=== PATIENT | female | born 1960 | race Caucasian/White ===

== ENCOUNTER 2019-10-03 06:17 | Day surgery (SDC) | payer MEDICAID ==
[~2019-10-03] VITALS: Ht 170.2 cm; Wt 69.2 kg
[2019-10-03] MEDS ORDERED: albumin 25% 100mL bottle x 1 IV PRN (06:45)
[2019-10-03 06:56] VITALS: BP 125/83
[2019-10-03] MEDS ORDERED: FURO-150 PO (07:07)
[2019-10-03] MEDS ORDERED: ACET-2119 PO (07:07)
[2019-10-03] MEDS ORDERED: SENN-162 PO (07:07)
[2019-10-03] MEDS ORDERED: SIME42TA (07:07)
[2019-10-03] MEDS ORDERED: LIDO30CR23 TOP (07:07)
[2019-10-03] MEDS ORDERED: OMEP40CA13 PO (07:07)
[2019-10-03 08:59] VITALS: BP 117/72
[2019-10-03] MEDS ORDERED: acetaminophen 325mg tablet PO PRN (09:25)
[2019-10-03 09:54] LABS: BF RBC COUNT 17250 /CU MM; BF WBC COUNT 500 /CU MM (0-1000); BFAPPEAR BLOODY; BFCOLOR RED; BFVOLUME 58 ML; LYMPHOCYTES,BODY FLUID 71 %; MONOCYTES,BODY FLUID 24 %; NEUTROPHILS,BODY FLUID 5 %
[2019-10-03 09:57] LABS: GLUCOSE,BODY FLUID 49 MG/DL; LDH,BODY FLUID 236 U/L; TOTAL PROTEIN,BODY FLUID 4.6 G/DL
[2019-10-03 09:59] VITALS: BP 126/78
== END 2019-10-03 10:01 | disposition home or self-care (01) ==
LOC: SSTAY O 06:17
PROVIDERS: ATTEND Radiology Diagnostic Radiology
DX: R18.8 Other ascites (principal); G89.29 Other chronic pain; E03.9 Hypothyroidism, unspecified; F32.9 Major depressive disorder, single episode, unspecified; I11.0 Hypertensive heart disease with heart failure; I50.9 Heart failure, unspecified; Z85.43 Personal history of malignant neoplasm of ovary; Z98.890 Other specified postprocedural states; Z88.5 Allergy status to narcotic agent; Z79.899 Other long term (current) drug therapy; Z87.440 Personal history of urinary (tract) infections; Z86.718 Personal history of other venous thrombosis and embolism
CPT/HCPCS: 49083; 82945; 83615; 84157; 87015; 87070; 87116; 87206; 89051; C1729; J2001

== ENCOUNTER 2019-10-14 05:15 | Day surgery (SDC) | payer MEDICAID ==
[2019-10-14] VITALS (10 sets, daily range): BP systolic 101–122; BP diastolic 58–80
[~2019-10-14] VITALS: Ht 170.2 cm; Wt 64.1 kg
[~2019-10-14 05:15] MED LIST: ACET-2119 PO; FURO-150 PO; LIDO30CR23 TOP; OMEP40CA13 PO; SENN-162 PO; SIME42TA
[2019-10-14] MEDS ORDERED: IBUP-24 PO (06:11)
[2019-10-14] MEDS ORDERED: albumin 25% 100mL bottle x 1 IV PRN (06:15)
[2019-10-14] MEDS ORDERED: normal saline 1000ml 1,000 ML IV PRN (06:15)
[2019-10-14] MEDS ORDERED: acetaminophen 325mg tablet PO PRN (08:30)
== END 2019-10-14 09:20 | disposition home or self-care (01) ==
LOC: SSTAY O 05:15
PROVIDERS: ATTEND Radiology Diagnostic Radiology
DX: R18.8 Other ascites (principal); G89.29 Other chronic pain; Z98.890 Other specified postprocedural states; Z80.49 Family history of malignant neoplasm of other genital organs
CPT/HCPCS: 49083; C1729; J2001

== ENCOUNTER 2019-10-23 08:06 | Day surgery (SDC) | payer MEDICAID ==
[~2019-10-23] VITALS: Ht 170.2 cm; Wt 61.2 kg
[2019-10-23] VITALS (7 sets, daily range): BP systolic 106–129; BP diastolic 58–77
[~2019-10-23 08:06] MED LIST changes: +IBUP-24 PO
[2019-10-23] MEDS ORDERED: SPIR25TA5 PO (08:38)
[2019-10-23] MEDS ORDERED: HYDR-4353 PO (08:39)
[2019-10-23] MEDS ORDERED: ms contin (08:40)
[2019-10-23] MEDS ORDERED: ONDA4TAB6 PO (08:41)
[2019-10-23] MEDS ORDERED: heparin sodium, porcine/PF 100unit/ml 5ML syringe ONE (10:07)
[2019-10-23] MEDS ORDERED: LIDOcaine 1%/PF 5ML 10 MG/ML VIAL ONE (10:07)
[2019-10-23] MEDS ORDERED: fentaNYL/PF 50MCG/1 ML 2ML syringe ONE ×2 (10:07→10:57)
[2019-10-23] MEDS ORDERED: midazolam 2 mg/2 ml injection ONE (10:07)
[2019-10-23] MEDS ORDERED: LIDOcaine/PRILOcaine 5gm cream TP ONE (10:22)
== END 2019-10-23 12:50 | disposition home or self-care (01) ==
LOC: SSTAY O 08:06
PROVIDERS: ATTEND Radiology Vascular & Interventional Radiology
DX: C18.9 Malignant neoplasm of colon, unspecified (principal); R18.8 Other ascites; G89.29 Other chronic pain; Z85.43 Personal history of malignant neoplasm of ovary; Z98.890 Other specified postprocedural states; Z88.5 Allergy status to narcotic agent; Z79.899 Other long term (current) drug therapy
CPT/HCPCS: 36561; 76705; 76937; 77001; 99152; 99153; C1769; C1788; C1894; J1642; J2250; J3010